=== PATIENT | male | born 1965 | race Caucasian/White ===

== ENCOUNTER 2020-03-31 11:37 | Emergency (ER) | payer OTHER ==
[~2020-03-31] VITALS: Ht 185.4 cm; Wt 113.0 kg
[~2020-03-31 11:37] MED LIST: ASPI325T8 PO; FLEC100T PO; METO25TA4 PO; OMEP20TA63 PO
[2020-03-31 11:53] VITALS: BP 159/90
[2020-03-31] MEDS ORDERED: FAMOTIDINE 20 MG TABLET PO ONE (12:00)
[2020-03-31] MEDS ORDERED: DEXAMETHASONE 4 MG TABLET PO ONE (12:00)
[2020-03-31] MEDS ORDERED: diphenhydrAMINE HCL 25 MG CAPSULE PO ONE (12:00)
[2020-03-31] MEDS ORDERED: FAMO-63 PO (12:16)
[2020-03-31] MEDS ORDERED: PRED20TA PO (12:16)
--- NOTE | 2020-03-31 12:16 | PHYS DOC ---
Past History Past Medical History: A-Fib Past Surgical History: Other Additional Past Surgical Histo: spinal surgery Alcohol Use: Occasionally General Adult EDM: Chief Complaint: FACE PROBLEM HPI: HPI: Patient is a 54 year old male who presents with facial swelling. The patient has had 3 separate episodes of angioedema the last 2 weeks, the first 2 of which resolved with [id number] allergy medication. Most recently he has had some lower lip swelling that became so bothersome he was hardly able to speak and decided to come to the ED. He denies any trouble breathing, or any other signs of airway compromise. He has not had any recent change to medication, no new allergen exposure, and no other change in environment or daily habits that he is aware of. He has never had trouble with this in the past. Review of Systems: Review of Systems: Constitutional: Denies fever or chills Eyes: Denies redness or eye pain HENT: Denies nasal congestion or sore throat Respiratory: Denies cough or shortness of breath. Denies trouble breathing Cardiovascular: Denies chest pain or palpitations GI: Denies abdominal pain, nausea, or vomiting : Denies dysuria or hematuria Musculoskeletal: Denies back pain or joint pain Integument: Denies rash or skin lesions. Notes some lower lips swelling Neurologic: Denies headache, focal weakness or sensory changes Complete systems were reviewed and found to be within normal limits, except as documented in this note. Current Medications: Current Meds: Current Medications Medications (Trade) Dose Ordered Sig/Fior Start Time Stop Time Status Last Admin Dose Admin Dexamethasone (Decadron) 10 mg 1X ONCE 03/31/20 12:00 03/31/20 12:02 DC Diphenhydramine HCl (Benadryl) 25 mg 1X ONCE 03/31/20 12:00 03/31/20 12:02 DC Famotidine (Pepcid) 20 mg 1X ONCE 03/31/20 12:00 03/31/20 12:02 DC Allergies: Allergies: Allergies Coded Allergies Type Severity Reaction Last Updated Verified No Known Drug Allergies 11/05/15 No Physical Exam: PE: Constitutional: Well developed, well nourished, no acute distress, non-toxic appearance HENT: Normocephalic, atraumatic Eyes: PERRL, EOMI, conjunctiva normal, no discharge Neck: Normal range of motion, no tenderness, supple Lungs & Thorax: No respiratory distress, equal chest rise and fall Abdomen: Soft, no tenderness Skin: Warm, dry, no erythema, no rash. Some lower lip swelling Back: No tenderness, no CVA tenderness Extremities: No tenderness, ROM intact, no edema Neurologic: Alert and oriented X 3, normal motor function, normal sensory function, no focal deficits noted Psychologic: Affect normal, judgment normal Current Patient Data: Vital Signs: Vital Signs Date Time Temp Pulse Resp B/P (MAP) Pulse Ox O2 Delivery O2 Flow Rate FiO2 03/31/20 11:53 98.5 75 16 159/90 (113) 98 Room Air EKG: EKG: [] Radiology/Procedures: Radiology/Procedures: [] Heart Score: Risk Factors: Risk Factors: DM, Current or recent (<one month) smoker, HTN, HLP, family history of CAD, obesity. Risk Scores: Score 0 - 3: 2.5% MACE over next 6 weeks - Discharge Home Score 4 - 6: 20.3% MACE over next 6 weeks - Admit for Clinical Observation Score 7 - 10: 72.7% MACE over next 6 weeks - Early Invasive Strategies Course & Med Decision Making: Course & Med Decision Making Pertinent Labs and Imaging studies reviewed. (See chart for details) [] Dragon Disclaimer: Dragon Disclaimer: This electronic medical record was generated, in whole or in part, using a voice recognition dictation system. Departure Departure: Impression: Primary Impression: Angioedema Qualified Codes: T78.3XXA - Angioneurotic edema, initial encounter Disposition: 01 SD HOME SELF CARE/HOMELESS Condition: STABLE Referrals: ZURI TABARES (PCP) Patient Instructions: Angioedema, [id number] Additional Instructions: Also take over the counter Benadryl 25mg. Take 4 times daily as needed for swelling or itching. Scripts Famotidine (PEPCID) 20 Mg Tablet 1 TAB PO BID for Swelling, #10 TAB Prov: ANURADHA DAO DO 03/31/20 Prednisone (PREDNISONE) 20 Mg Tablet 2 TAB PO DAILY for Swelling, #8 TAB Start this prescription tomorrow, Monday04/01/20 Prov: ANURADHA DAO DO 03/31/20 ANURADHA DAO DO Mar 31, 2020 12:16
== END 2020-03-31 12:23 | disposition home or self-care (01) ==
LOC: ER 11:37
DX: T78.3XXA Angioneurotic edema, initial encounter (principal); I48.91 Unspecified atrial fibrillation
CPT/HCPCS: 99284; J8540; Q0163

== ENCOUNTER 2020-04-08 21:43 | Emergency (ER) | payer OTHER ==
[~2020-04-08] VITALS: Ht 185.4 cm; Wt 113.0 kg
[~2020-04-08 21:43] MED LIST changes: +FAMO-63 PO; +PRED20TA PO
[2020-04-08] MEDS ORDERED: methylPREDNISolone SOD SUCC PF 125 MG/2 ML VIAL. ONE (21:51)
[2020-04-08] MEDS ORDERED: diphenhydrAMINE 50 MG/ML VIAL ONE (21:51)
[2020-04-08] MEDS ORDERED: FAMOTIDINE 20 MG/2 ML VIAL ONE (21:51)
--- NOTE | 2020-04-08 21:58 | PHYS DOC ---
Past History Past Medical History: A-Fib Past Surgical History: Other Additional Past Surgical Histo: spinal surgery Alcohol Use: Occasionally General Adult EDM: Chief Complaint: ALLERGIC REACTION HPI: HPI: ".. I had this before...I just finshed the meds they put me on .. and now it coming back.." Patient is a 54 year old MALE who presents with above hx and complaints of facial and oral edema.. Patient has had this reaction to previous times. Patient does recently completed course of meds for his allergic reaction. Patient is on flecainide, gabapentin and metoprolol. Patient does have a history of A. fib. Normally follows with Dr. Vaca. Denies denies any travel or sick ill contacts. Patient denies any change in diet. No history of new foods. Normally healthy. Except for the recent episodes of angioedema. Review of Systems: Review of Systems: Constitutional: Denies fever or chills Eyes: Denies change in visual acuity HENT: Complains of lip swelling and facial swelling Respiratory: Patient complains of wheezing Cardiovascular: Denies chest pain or edema GI: Denies abdominal pain, nausea, vomiting, bloody stools or diarrhea : Denies dysuria Musculoskeletal: Denies back pain or joint pain Integument: Denies rash Neurologic: Denies headache, focal weakness or sensory changes Endocrine: Denies polyuria or polydipsia Lymphatic: Denies swollen glands Psychiatric: Denies depression or anxiety Family History: Family History: Noncontributory to presentation Current Medications: Current Meds: Current Medications Medications (Trade) Dose Ordered Sig/Fior Start Time Stop Time Status Last Admin Dose Admin Diphenhydramine HCl (Benadryl) 50 mg STK-MED ONCE 04/08/20 21:51 04/08/20 21:52 DC Famotidine (Pepcid Vial) 20 mg 1X ONCE 04/08/20 22:00 04/08/20 22:01 UNV 04/08/20 21:55 20 MG Methylprednisolone Sodium Succinate (SOLU-Medrol 125MG VIAL) 125 mg 1X ONCE 04/08/20 22:00 04/08/20 22:01 UNV 04/08/20 21:54 125 MG Allergies: Allergies: Allergies Coded Allergies Type Severity Reaction Last Updated Verified No Known Drug Allergies 11/05/15 No Physical Exam: PE: Constitutional: Moderate acute distress, non-toxic appearance. [] HENT: Normocephalic, atraumatic, bilateral external ears normal, oropharynx moist, no oral exudates, nose normal. Lip edema. Bridge of nose edema Eyes: PERRLA, EOMI, conjunctiva normal, no discharge. [] Neck: Normal range of motion, no tenderness, supple, no stridor. [] Cardiovascular:Heart rate regular rhythm, no murmur [] Lungs & Thorax: Bilateral breath sounds equal apex few scattered wheezes on auscultation [] Abdomen: Bowel sounds normal, soft, no tenderness, no masses, no pulsatile masses. [] Skin: Warm, dry, no erythema, hives Back: No tenderness, no CVA tenderness. [] Extremities: No tenderness, no cyanosis, no clubbing, ROM intact, no edema. [] Neurologic: Alert and oriented X 3, normal motor function, normal sensory function, no focal deficits noted. [] Psychologic: Affect normal, judgement normal, mood normal. [] EKG: EKG: [] Radiology/Procedures: Radiology/Procedures: [] Heart Score: Risk Factors: Risk Factors: DM, Current or recent (<one month) smoker, HTN, HLP, family history of CAD, obesity. Risk Scores: Score 0 - 3: 2.5% MACE over next 6 weeks - Discharge Home Score 4 - 6: 20.3% MACE over next 6 weeks - Admit for Clinical Observation Score 7 - 10: 72.7% MACE over next 6 weeks - Early Invasive Strategies Course & Med Decision Making: Course & Med Decision Making Pertinent Labs and Imaging studies reviewed. (See chart for details) Patient take prednisone 50 mg daily for 5 days then start a prednisone taper. Patient take Pepcid 20 mg twice a day. Patient use MDI 2 puffs 4 times a day. Patient use [id number] Benadryl as needed for itching. Recommend patient hold the flecainide until has discussed with Dr. Cisse. Would eliminate 1 drug at a time to determine source of allergy. Impression: 1. Allergic reaction angioedema [] Dragon Disclaimer: Dragon Disclaimer: This electronic medical record was generated, in whole or in part, using a voice recognition dictation system. Departure Departure: Referrals: AARTI HENDERSON DO (PCP) Scripts Famotidine (PEPCID) 20 Mg Tablet 20 MG PO BID for allergic for 30 Days, #60 TAB Prov: ANNELIESE GREENBERG MD 04/08/20 Prednisone (PREDNISONE) 10 Mg Tablet 10 MG PO UD for PREDNISONE TAPER, #39 TAB 0 Refills Take 3 tablets by mouth twice a day for 3 days, then take 2 tablets by mouth twice a day for 3 days, then take 1 tablet by mouth twice a day for 3 days, then take 1 tablet by mouth daily x 3 days, then stop. Prov: ANNELIESE GREENBERG MD 04/08/20 Prednisone (PREDNISONE) 50 Mg Tablet 50 MG PO DAILY for allergic reaction for 5 Days, #5 TAB Prov: ANNELIESE GREENBERG MD 04/08/20 Dragon Disclaimer This chart was dictated in whole or in part using Voice Recognition software in a busy, high-work load, and often noisy Emergency Department environment. It may contain unintended and wholly unrecognized errors or omissions. ANNELIESE GREENBERG MD Apr 08, 2020 21:58
[2020-04-08] MEDS ORDERED: methylPREDNISolone SOD SUCC PF 125 MG/2 ML VIAL. IV ONE (22:00)
[2020-04-08] MEDS ORDERED: ALBUTEROL SULFATE 8GM INHALER. INH ONE (22:00)
[2020-04-08] MEDS ORDERED: FAMOTIDINE 20 MG/2 ML VIAL IVP ONE (22:00)
[2020-04-08] MEDS ORDERED: FAMO-63 PO ×3 (22:33→22:50)
[2020-04-08] MEDS ORDERED: PRED50TA PO (22:33)
[2020-04-08 22:47] VITALS: BP 145/81
[2020-04-08] MEDS ORDERED: PRED-220 PO (22:50)
== END 2020-04-08 22:50 | disposition home or self-care (01) ==
LOC: ER 21:43
DX: T78.3XXA Angioneurotic edema, initial encounter (principal); L29.9 Pruritus, unspecified; I48.20 Chronic atrial fibrillation, unspecified; Z98.890 Other specified postprocedural states; Y92.89 Other specified places as the place of occurrence of the external cause
CPT/HCPCS: 94640; 96374; 96375; 99284; J2930; J3490; 94664